=== PATIENT | male | born 1990 | race Caucasian/White ===

== ENCOUNTER 2017-04-08 02:06 | Inpatient (IN) | payer OTHER ==
[~2017-04-08] VITALS: Ht 172.7 cm; Wt 81.6 kg
--- NOTE | 2017-04-08 02:35 | NUR ---
Intake Notes Px is A&Ox4. Px is ambulatory with steady gait. Speech is clear and audible. Px appears anxious but cooperative during interview. VS as follows BP= 142/88, IN= 102, RR=19, T= 98.5, O2sat= 98%. Px is here for methamphetamine dependence. Px reported no seizure hx and has NKA. Px reported that hes not taking any prescribed medications at home. Explained to the px the unit's protocols. Px verbalized understanding. We'll continue with the admission process and monitoring in the unit.
[2017-04-08] MEDS ORDERED: IBUPROFEN 600 MG TABLET PO PRN (02:45)
[2017-04-08] MEDS ORDERED: LOPERAMIDE HCL 2 MG CAPSULE PO PRN ×2 (02:45)
[2017-04-08] MEDS ORDERED: diphenhydrAMINE 50 MG CAPSULE PO PRN (02:45)
[2017-04-08] MEDS ORDERED: ACETAMINOPHEN 325 MG TABLET PO PRN (02:45)
[2017-04-08] MEDS ORDERED: ONDANSETRON ODT 4 MG TAB.RAPDIS SL PRN (02:45)
[2017-04-08] MEDS ORDERED: MAGNESIUM HYDROXIDE 30 ML LIQUID UDC PO PRN (02:45)
[2017-04-08] MEDS ORDERED: MAG HYDROX/AL HYDROX/SIMETH 30 ML LIQUID UDC PO PRN (02:45)
[2017-04-08] MEDS ORDERED: MIRALAX 17 GM POWD.PACK PO PRN (02:45)
[2017-04-08] MEDS ORDERED: DICYCLOMINE HCL 20 MG TABLET PO PRN (02:45)
[2017-04-08] MEDS ORDERED: ONDANSETRON 4 MG/2 ML VIAL IM PRN (02:45)
--- NOTE | 2017-04-08 03:00 | NUR ---
Admission Notes Px is 26 y/o male admitted at [facility] on 04/08/2017 for methamphetamine dependence. Px came in the unit at 0250. Body searched done and skin check. No contraband found. There is a scratch, bruise and swelling on right anterior forearm. Px is 5'8" in height and weighs 180 lbs. in standing scale. Px is oriented to floor unit and room. Px follows a regular diet at home and reported NKA to drugs and food. Px wishes to be in Full [facility]. No SOB noted. Respirations are even and unlabored. Abdomen is not distended. Bowel sounds are active on 4 quadrants. No N/V. No pain reported. VS as follows BP= 128/77, WY= 98, RR= 17, T= 98.1, U3pgz=93%. Px reported PMHx of anxiety, depression and chest pain (2 weeks ago). Px had suicide thought last week but nothing at the moment and no attempt. Px was able to provide urine for UDS. Px reported substance use hx of Methamphetamine 2 G IV daily for 2 months, last intake 04/07/2017, 0.5 G IV. Px also reported that he had 7-8 txs/detox in the past. Px denies hospitalization for the past mo. Px's longest sobriety was 13 mos. Last 2008 to 2009. Px reported he feels very anxious, verbally active, and irritable if he is not using meth. His last BM was 04/07/2017. Px smokes cigarette 1 pack daily. Px refused pneumonia and flu vaccines. Px does not have PCP. Pxs bed is in lowest position, side rails up 2x, and call light within reach. We'll continue to monitor.
[2017-04-08 03:33] LABS: *AMPHETAMINE, URINE POSITIVE (NEGATIVE); *BARBITURATE, URINE NEGATIVE (NEGATIVE); *CANNABINOID, URINE NEGATIVE (NEGATIVE); *COCCAINE, URINE NEGATIVE (NEGATIVE); *OPIATE, URINE NEGATIVE (NEGATIVE); *PHENCYCLIDINE SCREEN,URINE NEGATIVE (NEGATIVE)
[2017-04-08] MEDS ORDERED: LORAZEPAM 1 MG TABLET PO ONE (03:45)
[2017-04-08 04:00] VITALS: BP 128/77
--- NOTE | 2017-04-08 04:19 | NUR ---
1x dose Ativan Px reported high anxiety and asked what medicine can we administer for his anxiety. Ativan 1 mg/tab, 2 tabs given PO as 1x dose for high anxiety. We'll continue to monitor.
[2017-04-08 04:56] LABS: ALANINE AMINOTRANSFERASE 63 U/L (16-63); ALKALINE PHOSPHATASE 102 U/L (50-136); AMYLASE 47 U/L (25-115); ASPARTATE AMINOTRANSFERASE 25 U/L (15-37); BILIRUBIN,TOTAL 0.3 mg/dL (0.2-1.0); CARBON DIOXIDE 31 mmol/L (21-32); CHLORIDE 102 mmol/L (98-107); CREATININE 1.2 mg/dL (0.6-1.3); GLUCOSE 114 mg/dL (74-106); LIPASE 182 U/L (73-393); MAGNESIUM 2.4 mg/dL (1.8-2.4); POTASSIUM 3.6 mmol/L (3.5-5.1); TOTAL PROTEIN, SERUM 8.1 g/dL (6.4-8.2); UREA NITROGEN, BLOOD 17 mg/dL (7-18)
[2017-04-08 04:58] LABS: ETHANOL < 3 MG/DL (0-0)
[2017-04-08 05:07] LABS: THYROID STIMULATING HORMONE 2.248 mIU/mL (0.358-3.740)
[2017-04-08 05:11] LABS: BASOPHILS # (AUTO) 0.1 K/uL (0.0-8.0); BASOPHILS % (AUTO) 0.5 % (0.0-2.0); EOSINOPHILS # (AUTO) 0.2 K/uL (0.0-0.7); EOSINOPHILS % (AUTO) 1.6 % (0.0-7.0); HEMATOCRIT 47.5 % (36.7-47.1); HEMOGLOBIN 15.5 g/dL (12.5-16.3); LYMPHOCYTES # (AUTO) 3.3 K/uL (20.0-40.0); MEAN CORPUSCULAR HEMOGLOBIN 26.1 uug (23.8-33.4); MEAN CORPUSCULAR HGB CONC 33 g/dL (32.5-36.3); MONOCYTES # (AUTO) 0.7 K/uL (2.0-10.0); MONOCYTES % (AUTO) 5.8 % (0.0-11.0); NEUTROPHILS # (AUTO) 7.9 K/uL (1.8-8.9); NEUTROPHILS % (AUTO) 65.1 % (38.5-71.5); PLATELET COUNT (AUTO) 374 K/uL (152-348); RED BLOOD CELL COUNT(AUTO) 5.94 MIL/uL (4.06-5.63); WHITE BLOOD COUNT (AUTO) 12.1 K/uL (3.6-10.2)
[2017-04-08] MEDS ORDERED: LORAZEPAM 1 MG TABLET PO PRN (07:15)
--- NOTE | 2017-04-08 07:32 | NUR ---
End of Shift Notes Px had difficulty sleeping during the night. Px took a shower at 0330. Advised to turn off the lights and lower the volume of the TV and/or take a little snack but not caffeinated food or drink. At 0419, Ativan 2mg PO given as 1x dose. Oral intake of 650 ml, voided 1x, No BM. Slept for 1 hour. We'll continue to monitor. Endorsed to the AM shift nurse.
--- NOTE | 2017-04-08 07:40 | NUR ---
START OF SHIFT Rcvd endorse form ongoing nurse, client is in room, client is a/o x 3, he presents with anxious mood, flat affect, inability to stay still or concentrate, opening and closing his fist. He reports not having an appetite and feeling very tired. Client's room has scattered clothes on the floor. Client denies any N/V/D. Encourage client to increase PO fluid as tolerated to facilitate detox. Encourage client to attend group therapy for skills to maintain sober. Client is admitted for withdrawal from methamphetamine salts. Client slept 1 hr. One time dose Ativan 2mg PO administered for anxiety/agitation, noted effective. Client denies a history of withdrawal-induced seizures. Side rails x 2 up. Call light within reach.
[2017-04-08 08:18] VITALS: BP 120/71
[2017-04-08] MEDS: MULTIVITAMINS,THERAPEUTIC TABLET PO SCH (09:00)
[2017-04-08] MEDS ORDERED: HYDROXYZINE PAMOATE 25 MG CAPSULE PO PRN (09:30)
--- NOTE | 2017-04-08 09:48 | NUR ---
Multivitamin 1 tab not administered, client is asleep, difficult to arouse, RR 16, even, non-labored. Will continue to monitor.
[2017-04-08 12:24] VITALS: BP 122/67
[2017-04-08 16:55] VITALS: BP 127/64
--- NOTE | 2017-04-08 19:21 | NUR ---
END OF SHIFT Endorse client to ongoing nurse, client is in room, client is a/o x 3, he continue to present with anxious mood, flat affect. Client is schedule for discharge to [facility] treatment on the morning, he verbalized understanding. Client denies any N/V/D. Client is admitted for withdrawal from methamphetamine salts. Client denies a history of withdrawal-induced seizures. Side rails x 2 up. Call light within reach.
[2017-04-08 20:00] VITALS: BP 115/62
--- NOTE | 2017-04-08 20:00 | NUR ---
Start of Shift Notes Received px awake lying on his bed. Clothes not folded noted on bed. Px has flat affect and has avoidant eye contact. Px appears anxious. Px verbalized his anxiety is 7/10. Px asked for a pass to smoke in the patio. Px's bed is on lowest position, side rails up 2x, call light within reach. We'll continue to monitor.
[2017-04-08] MEDS ORDERED: IBUP-1955 PO (20:38)
[2017-04-08] MEDS ORDERED: DIPH50CA37 PO (20:38)
[2017-04-08] MEDS ORDERED: HYDR-3895 PO (20:38)
--- NOTE | 2017-04-08 22:30 | NUR ---
PRN meds Benadryl 50 mg/cap, 1 cap given PO and Vistaril 25 mg/cap, 1 cap given PO as PRN meds for anxiety and help px sleep tonight. We'll continue to monitor.
--- NOTE | 2017-04-08 23:30 | NUR ---
Reassessment of anxiety Px verbalized that his anxiety improved from 7/10 to 4-5/10 after an hour of administration of Vistaril and Benadryl. We'll continue to monitor.
[2017-04-09] VITALS: BP 128/60
[2017-04-09 04:00] VITALS: BP 120/69
--- NOTE | 2017-04-09 07:15 | NUR ---
End of Shift Notes Px is to be D/C today 04/09/2017. In the start of shift, px verbalized high anxiety. PRN meds Benadryl 50 mg and Vistaril 25 mg PO improved pxs anxiety from 09/07 to 4-5. Px had oral intake of 1 L, voided 3x, No BM. Px slept for 8.5 hours. At 0630, px was asleep on bed. Px's bed is on lowest position, side rails up 2x, call light within reach. We'll continue to monitor. Px endorsed to AM shift nurse.
--- NOTE | 2017-04-09 07:51 | NUR ---
START OF SHIFT Rcvd endorse form ongoing nurse, client is in the hallway, a/o x 3, he presents with anxious mood. He reports not having a good night sleep, and feeling a little lost with his discharge this morning. Discuss with client discharge process and answer to his inquiries, at this time, he verbalized felling a little bit anxious and requested to go out to the patio. Client is admitted for withdrawal from methamphetamine salts. PRN Vistaril 25mg PO for anxiety, Benadryl 50mg PO for inability to sleep, client slept 8 hr. Client denies a history of withdrawal-induced seizures. Side rails x 2 up. Call light within reach.
[2017-04-09 08:20] VITALS: BP 127/80
[2017-04-09] MEDS: MULTIVITAMINS,THERAPEUTIC TABLET PO SCH (08:30)
[2017-04-09] MEDS ORDERED: TUBERCULIN,PURIF.PROT.DERIV. 5 TU/0.1 ML TEST ID ONE (09:00)
--- NOTE | 2017-04-09 10:30 | NUR ---
Discharge note Pt was admitted for withdrawal from methamphetamine. Client VS are WNL. Client LBM was 04/09/17. Client denies any SI/HI. Client verbalized his understanding of the discharge instructions. Client has no complaints at this time. Client discharge instructions, prescriptions, and all belongings returned to pt. All needs addressed at this time. Client ambulated off of unit, client left facility via [facility] for [facility].
[2017-04-09 13:08] LABS: HEPATITIS B SURFACE AG Negative (Negative)
== END 2017-04-09 10:30 | disposition other institution (70) | DRG 897 ==
LOC: SRC 02:06
PROVIDERS: ADMIT Internal Medicine; ATTEND Internal Medicine
PROC: HZ2ZZZZ Detoxification Services for Substance Abuse Treatment (ICD-10-PCS; principal; 2017-04-08)
DX: F15.23 Other stimulant dependence with withdrawal (principal); F11.21 Opioid dependence, in remission; F17.210 Nicotine dependence, cigarettes, uncomplicated; Z91.89 Other specified personal risk factors, not elsewhere classified; F32.9 Major depressive disorder, single episode, unspecified; F41.9 Anxiety disorder, unspecified
CPT/HCPCS: 36415; 80307; 80324; 83690; 83735; 84443; 85025; 86592; 86705; 86803; 87340; 87806; A4663; G0480; Q0163